=== PATIENT | male | born 1990 | race Caucasian/White ===

== ENCOUNTER 2019-12-04 19:42 | Emergency (ER) | payer OTHER ==
[~2019-12-04] VITALS: Ht 180.3 cm; Wt 89.2 kg
--- NOTE | 2019-12-04 20:03 | ED General ---
General Chief Complaint: Cough/Cold/Flu Symptoms Stated Complaint: FEVER,HEADACHE Nursing Triage Note: Patient states that he began having a headache today and noticed a fever. 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 Nursing Sepsis Screen: No Definite Risk Source of Information: Patient History of Present Illness Date Seen by Provider: Dec 04, 2019 Time Seen by Provider: 20:03 Initial Comments 29 yo M presenting with sinus headache and fever that started today. He has a history of having some sinus problems. He states that he was pulling out green drainage from his sinuses today. He had a temperature of that continuing to climb for him this afternoon and evening. He took a gram of Tylenol around 5:30- 6 pm but he still has a fever. He does have some sore throat from drainage. He denies any significant cough or shortness of breath. He has had ill contacts with some children that have been sick recently. He denies any tobacco use. Allergies and Home Medications Allergies Coded Allergies: No Known Drug Allergies (Unverified , 12/04/19) Patient Home Medication List Home Medication List Reviewed: Yes Review of Systems Review of Systems Constitutional: chills, fever EENTM: nose congestion, other (sinus pressure); No ear discharge, No ear pain, No vision loss, No mouth pain Respiratory: cough (mild) Cardiovascular: no symptoms reported Gastrointestinal: no symptoms reported Genitourinary: no symptoms reported Musculoskeletal: other (generalized body aches) Skin: no symptoms reported; No rash Psychiatric/Neurological: No Symptoms Reported Past Junkzsr-Umqrdy-Evdewc Hx Past Med/Social Hx: Reviewed Nursing Past Med/Soc Hx Patient Social History Recent Foreign Travel: No Contact w/Someone Who Travel: No Recent Infectious Disease Expo: No Physical Abuse: No Sexual Abuse: No Mistreated: No Fear: No Past Medical History Surgeries: No Respiratory: No Cardiac: No Neurological: No Genitourinary: No Gastrointestinal: No Musculoskeletal: No Endocrine: No HEENT: No Cancer: No Psychosocial: No Integumentary: No Physical Exam Vital Signs Vital Signs - First Documented 12/04/19 19:45 Temp 38.5 Pulse 72 Resp 14 B/P (MAP) 142/104 (117) Pulse Ox 100 O2 Delivery Room Air Capillary Refill : Less Than 3 Seconds Height, Weight, BMI Height: '" Weight: lbs. oz. kg; 27.00 BMI Method: General Appearance: No Apparent Distress, WD/WN HEENT: PERRL/EOMI, TMs Normal, Pharynx Normal, Other (tender to palpation over the maxillary and frontal sinuses) Neck: Full Range of Motion, Normal Inspection, Non Tender, Supple Respiratory: Chest Non Tender, Lungs Clear, Normal Breath Sounds, No Accessory Muscle Use, No Respiratory Distress Cardiovascular: Regular Rate, Rhythm, Normal Peripheral Pulses Gastrointestinal: Normal Bowel Sounds, No Pulsatile Mass, Soft Back: Normal Inspection, No Vertebral Tenderness Extremity: Normal Capillary Refill, No Pedal Edema Neurologic/Psychiatric: Alert, Oriented x3, No Motor/Sensory Deficits Skin: Normal Color, Warm/Dry; No Rash Progress/Results/Core Measures Suspected Sepsis Recent Fever Within 48 Hours: Yes Infection Criteria Present: None New/Unexplained Altered Menta: No Sepsis Screen: No Definite Risk SIRS Temperature: Pulse: 72 Respiratory Rate: 14 Blood Pressure 142 /104 Mean: 117 Results/Orders Micro Results Microbiology 12/04/19 Influenza Types A,B Antigen ([place]) - Final, Complete My Orders Orders - DAYA MARLOW MD Influenza A And B Antigens (12/04/19 19:57) Ibuprofen Tablet (Motrin Tablet) (12/04/19 20:21) Dexamethasone Injection (Decadron Inject (12/04/19 21:30) Methylprednisolone Acetate Inj (Depo-Med (12/04/19 21:30) Vital Signs/I&O 12/04/19 12/04/19 19:45 21:41 Temp 38.5 38.5 Pulse 72 72 Resp 14 14 B/P (MAP) 142/104 (117) 134/92 (117) Pulse Ox 100 100 O2 Delivery Room Air Capillary Refill : Less Than 3 Seconds Blood Pressure Mean: 117 Progress Note #1: Progress Note check flu swab and give Ibuprofen for fever and body aches Progress Note #2: Progress Note Flu swab was negative. Will treat symptomatically. Encouraged to follow-up through the clinic for continued concerns. A steroid shot was given to try and help with inflammation and swelling. Counseled to continue to treat his fever and push fluids and rest Departure Impression Primary Impression: Maxillary sinusitis, acute Qualified Codes: J01.01 - Acute recurrent maxillary sinusitis Additional Impressions: Acute frontal sinusitis Qualified Codes: J01.11 - Acute recurrent frontal sinusitis Fever in adult Disposition: HOME, SELF-CARE Condition: Stable Departure-Patient Inst. Decision time for Depature: 21:31 Referrals: FRACISCO DENNIS MD (PCP/Family) Primary Care Physician Patient Instructions: Sinusitis, Adult (DC), Fever, Adult (DC) Add. Discharge Instructions: Stay well hydrated and get plenty of rest Follow up with clinic for continued problems/concerns Use Ibuprofen alternating with Acetaminophen as needed for fever All discharge instructions reviewed with patient and/or family. Voiced understanding. Work/School Note: Work Release Form Date Seen in the Emergency Department: Dec 04, 2019 Return to Work: Dec 06, 2019 Restrictions: Return-No Fever (24hrs) DAYA MARLOW MD Dec 04, 2019 20:03
[2019-12-04] MEDS ORDERED: IBUPROFEN 800 MG (MOTRIN) TAB PO STA (20:21)
[2019-12-04] MEDS ORDERED: DEXAMETHASONE 10 MG/ML (DECADRON) 1 ML VIAL IM STA (21:30)
[2019-12-04] MEDS ORDERED: methylPREDNISolone 80 MG/ML (DEPO MEDROL) VIAL IM STA (21:30)
[2019-12-04 21:41] VITALS: BP 134/92
== END 2019-12-04 21:41 | disposition home or self-care (01) ==
LOC: ER FS 19:44
DX: J01.00 Acute maxillary sinusitis, unspecified (principal); J01.10 Acute frontal sinusitis, unspecified
CPT/HCPCS: 87804

== ENCOUNTER 2021-01-16 22:50 | Emergency (ER) | payer OTHER ==
[~2021-01-16] VITALS: Ht 182.8 cm; Wt 95.4 kg
[2021-01-16 22:58] VITALS: BP 145/103
--- NOTE | 2021-01-16 23:09 | ED Cough/URI ---
General Chief Complaint: Nasal Problems Stated Complaint: HEADACHE,COUGH Source: patient Exam Limitations: no limitations History of Present Illness Date Seen by Provider: Jan 16, 2021 Time Seen by Provider: 23:04 Initial Comments Patient is a 30-year-old male who presents to the emergency department today with a chief complaint of sinus drainage, facial fullness, congestion cough. Patient has had symptoms ongoing for about 48 hours. He states he has green na teddy secretions and is coughing up green secretions as well. He denies fevers or chills. No earache no sore throat. Patient denies any sick contacts. He is not short of breath currently. He has not taken anything dcfa-mtj-dusrzzm to try and alleviate his symptoms other than his allergy pills. All other review of systems reviewed and negative except as stated above. Timing/Duration: other (48 hours) Severity/Quality: productive cough Associated Symptoms: facial pain, nasal congestion, nasal drainage Allergies and Home Medications Allergies Coded Allergies: No Known Drug Allergies (Unverified , 12/04/19) Patient Home Medication List Home Medication List Reviewed: Yes Review of Systems Review of Systems Constitutional: see HPI EENTM: nose congestion Respiratory: cough, phlegm Cardiovascular: no symptoms reported Gastrointestinal: no symptoms reported Genitourinary: no symptoms reported Musculoskeletal: no symptoms reported Skin: no symptoms reported All Other Systems Reviewed Negative Unless Noted: Yes Past Eiygrsa-Qqqnjd-Rciwsm Hx Past Medical History Surgeries: No Respiratory: No Cardiac: No Neurological: No Genitourinary: No Gastrointestinal: No Musculoskeletal: No Endocrine: No HEENT: No Cancer: No Psychosocial: No Integumentary: No Physical Exam Capillary Refill : Height: '" Weight: lbs. oz. kg; 27.00 BMI Method: General Appearance: WD/WN, no apparent distress Eyes: Bilateral Eye Normal Inspection, Bilateral Eye PERRL, Bilateral Eye EOMI HEENT: PERRL/EOMI, normal ENT inspection, TMs normal, pharynx normal Neck: full range of motion, supple, lymphadenopathy (R) Respiratory: lungs clear, normal breath sounds, no respiratory distress, no accessory muscle use Cardiovascular: regular rate, rhythm Gastrointestinal: non tender, soft Extremities: normal range of motion, normal inspection Neurologic/Psychiatric: alert, normal mood/affect, oriented x 3 Skin: normal color, warm/dry Progress/Results/Core Measures Suspected Sepsis SIRS Temperature: Pulse: Respiratory Rate: Blood Pressure / Mean: Results/Orders Vital Signs/I&O Capillary Refill : Departure Impression Primary Impression: Sinusitis Qualified Codes: J01.90 - Acute sinusitis, unspecified Disposition: 01 HOME, SELF-CARE Condition: Stable Departure-Patient Inst. Decision time for Depature: 23:12 Referrals: SELFFRACISCO MD (PCP/Family) Primary Care Physician Patient Instructions: Sinusitis, Adult ED, Sinusitis in Adults Add. Discharge Instructions: You should get some kpvm-efh-cobtvlq Robitussin decongestant this will help with your sinus fullness and cough . I have also written you a prescription for Sudafed which will dry out your sinuses and make you feel little bit better. You can use hphh-eaa-cjcqeyn saline nasal sprays to help keep your nose open. Try to avoid using medications like Afrin as this will over the long-term increase your congestion. Take the Tessalon Perles I have prescribed you as needed for cough. Your symptoms should start to clear up within the next 2 to 3 days. Scripts Phenylephrine HCl/Acetaminophn (Sudafed PE Sinus Pressure Tab) 1 Each Tablet 1 EACH PO BID PRN for CONGESTION, #30 TAB Prov: MALCOLM MOJICA MD 01/16/21 Benzonatate (TESSALON PERLES) 100 Mg Capsule 200 MG PO TID PRN for cough, #20 CAP Prov: MALCOLM MOJICA MD 01/16/21 MALCOLM MOJICA MD Jan 16, 2021 23:09
[2021-01-16] MEDS ORDERED: BENZ100C18 PO (23:15)
[2021-01-16] MEDS ORDERED: [UNRECOGNIZED DRUG - CODE] PO (23:15)
[2021-01-16] MEDS ORDERED: BENZONATATE 100 MG (TESSALON) CAPSULE PO SCH (23:15)
== END 2021-01-16 23:28 | disposition home or self-care (01) ==
LOC: EDUNIT# 22:50 → ER FS 22:51
DX: J01.90 Acute sinusitis, unspecified (principal)
CPT/HCPCS: 99284

== ENCOUNTER 2021-09-29 00:51 | Emergency (ER) | payer OTHER ==
[~2021-09-29] VITALS: Ht 180 cm; Wt 94.0 kg
[~2021-09-29 00:51] MED LIST: BENZ100C18 PO; [UNRECOGNIZED DRUG - CODE] PO
[2021-09-29] MEDS ORDERED: NS IV 1000 ML 1,000 ML IV STA (01:22)
[2021-09-29] MEDS ORDERED: meTOprolol 5 MG/5 ML (LOPRESSOR) VIAL IV STA (01:22)
--- NOTE | 2021-09-29 01:22 | ED General ---
General Chief Complaint: Cardiac/General Problems Stated Complaint: CHILLS/HYPERTION Source of Information: Patient History of Present Illness Date Seen by Provider: Sep 29, 2021 Time Seen by Provider: 00:57 Initial Comments 30-year-old male presenting with complaints of sinus drainage with cough and congestion. He felt "weird" and took his blood pressure earlier. His pressure was elevated and he felt like his heart was beating irregular and fast. He did have some vomiting with choking on thick sinus drainage. He denies having any fever or chills. He did not have any pain in his chest. He denies any a bdominal pain, pain with urination, change in his bowels, diarrhea, sore throat. He has had coworkers that have been sick with the flu and Covid. He used to be on high blood pressure medication but has not taken any recently Timing/Duration: 12-24 Hours Severity: Moderate Associated Systoms: Cough; No Diaphoresis, No Fever/Chills, No Headaches, No Loss of Appetite, No Malaise; Nausea/Vomiting (Due to choking on thick sinus drainage); No Seizure, No Shortness of Air, No Syncope, No Weakness Allergies and Home Medications Allergies Coded Allergies: No Known Drug Allergies (Unverified , 12/04/19) Patient Home Medication List Home Medication List Reviewed: Yes Benzonatate (Tessalon Perles) 100 Mg Capsule, 200 MG PO TID PRN for cough Prescribed by: MALCOLM MOJICA on 01/16/212314 Phenylephrine HCl/Acetaminophn (Sudafed PE Sinus Pressure Tab) 1 Each Tablet, 1 EACH PO BID PRN for CONGESTION Prescribed by: MALCOLM MOJICA on 01/16/212314 Review of Systems Review of Systems Constitutional: see HPI EENTM: see HPI, nose congestion Respiratory: see HPI Cardiovascular: see HPI, palpitations Gastrointestinal: see HPI; No abdominal pain Genitourinary: no symptoms reported Musculoskeletal: no symptoms reported Skin: No rash Psychiatric/Neurological: Anxiety; Denies Headache Past Sdzeroj-Cvohdq-Zlcrej Hx Seasonal Allergies Seasonal Allergies: Yes Past Medical History Surgeries: Yes Appendectomy Respiratory: No Cardiac: No Neurological: No Genitourinary: No Gastrointestinal: No Musculoskeletal: No Endocrine: No HEENT: No Cancer: No Psychosocial: No Integumentary: No Blood Disorders: No Physical Exam Vital Signs Vital Signs - First Documented 09/29/21 01:00 Temp 37.4 Pulse 93 Resp 12 B/P (MAP) 163/100 (121) Pulse Ox 99 O2 Delivery Room Air Capillary Refill : Height, Weight, BMI Height: '" Weight: lbs. oz. kg; 28.00 BMI Method: General Appearance: No Apparent Distress, Anxious HEENT: PERRL/EOMI, Normal ENT Inspection, Pharynx Normal Neck: Full Range of Motion, Normal Inspection, Non Tender, Supple Respiratory: Chest Non Tender, Lungs Clear, Normal Breath Sounds, No Accessory Muscle Use, No Respiratory Distress Cardiovascular: Regular Rate, Rhythm, Normal Peripheral Pulses Gastrointestinal: Normal Bowel Sounds, No Pulsatile Mass, Non Tender, Soft Rectal: Deferred Extremity: Normal Capillary Refill, Normal Inspection, No Calf Tenderness, No Pedal Edema Neurologic/Psychiatric: Alert, Oriented x3, clinical engineering director II-XII Norm as Tested Skin: Normal Color, Warm/Dry Progress/Results/Core Measures Suspected Sepsis SIRS Temperature: Pulse: Respiratory Rate: Laboratory Tests 09/29/21 02:00: White Blood Count 8.1 Blood Pressure / Mean: Laboratory Tests 09/29/21 02:00: Creatinine 0.83, INR Comment 0.9, Platelet Count 235, Total Bilirubin 0.5 Results/Orders Lab Results Laboratory Tests Test 09/29/21 01:55 09/29/21 02:00 Range/Units Influenza Type A Antigen NEGATIVE NEGATIVE Influenza Type B Antigen NEGATIVE NEGATIVE White Blood Count 8.1 4.3-11.0 10^3/uL Red Blood Count 4.97 4.30-5.52 10^6/uL Hemoglobin 15.0 13.3-17.7 g/dL Hematocrit 43 40-54 % Mean Corpuscular Volume 87 80-99 fL Mean Corpuscular Hemoglobin 30 25-34 pg Mean Corpuscular Hemoglobin Concent 35 32-36 g/dL Red Cell Distribution Width 12.7 10.0-14.5 % Platelet Count 235 130-400 10^3/uL Mean Platelet Volume 10.0 9.0-12.2 fL Immature Granulocyte % (Auto) 0 % Neutrophils (%) (Auto) 58 42-75 % Lymphocytes (%) (Auto) 30 12-44 % Monocytes (%) (Auto) 8 0-12 % Eosinophils (%) (Auto) 4 0-10 % Basophils (%) (Auto) 0 0-10 % Neutrophils # (Auto) 4.7 1.8-7.8 X 10^3 Lymphocytes # (Auto) 2.4 1.0-4.0 X 10^3 Monocytes # (Auto) 0.6 0.0-1.0 X 10^3 Eosinophils # (Auto) 0.3 0.0-0.3 10^3/uL Basophils # (Auto) 0.0 0.0-0.1 10^3/uL Immature Granulocyte # (Auto) 0.0 0.0-0.1 10^3/uL Prothrombin Time 12.3 12.2-14.7 SEC INR Comment 0.9 0.8-1.4 Activated Partial Thromboplast Time 25 24-35 SEC D-Dimer 0.57 H 0.00-0.49 UG/ML Sodium Level 139 135-145 MMOL/L Potassium Level 4.2 3.6-5.0 MMOL/L Chloride Level 101 98-107 MMOL/L Carbon Dioxide Level 24 21-32 MMOL/L Anion Gap 14 5-14 MMOL/L Blood Urea Nitrogen 17 7-18 MG/DL Creatinine 0.83 0.60-1.30 MG/DL Estimat Glomerular Filtration Rate 107 BUN/Creatinine Ratio 20 Glucose Level 127 H 70-105 MG/DL Calcium Level 9.8 8.5-10.1 MG/DL Corrected Calcium 8.5-10.1 MG/DL Magnesium Level 2.0 1.6-2.4 MG/DL Total Bilirubin 0.5 0.1-1.0 MG/DL Aspartate Amino Transf (AST/SGOT) 28 5-34 U/L Alanine Aminotransferase (ALT/SGPT) 43 0-55 U/L Alkaline Phosphatase 85 40-136 U/L Troponin I < 0.30 <0.30 NG/ML Pro-B-Type Natriuretic Peptide < 5.0 <75.0 PG/ML Total Protein 7.7 6.4-8.2 GM/DL Albumin 4.6 H 3.2-4.5 GM/DL Lipase 20 8-78 U/L My Orders Orders - DAYA MARLOW MD Cbc With Automated Diff (09/29/21 01:22) Magnesium (09/29/21 01:22) Chest 1 View Ap/Pa Only (09/29/21 01:22) Ekg Tracing (09/29/21:22) Comprehensive Metabolic Panel (09/29/21:) Protime With Inr (09/29/21:) Partial Thromboplastin Time (09/29/21:) O2 (09/29/21:) Monitor-Rhythm Ecg Trace Only (09/29/21:22) Ed Iv/Invasive Line Start (09/29/21:) Lipase (09/29/21:) Troponin I Fs (09/29/21:22) Probnp Fs (09/29/21:) Fibrin Degradation Products (09/29/21:) Influenza A & B Antigens (09/29/21:) Covid 19 Inhouse Test (09/29/21:) Ns Iv 1000 Ml (Sodium Chloride 0.9%) (09/29/21:) Metoprolol Tartrate Injection (Lopressor (09/29/21:) Vital Signs/I&O 09/29/21 09/29/21 09/29/21 09/29/21 01:00 01:33 02:09 02:15 Temp 37.4 Pulse 93 94 85 80 Resp 12 12 12 14 B/P (MAP) 163/100 (121) 161/106 150/94 142/90 Pulse Ox 99 99 98 99 O2 Delivery Room Air 09/29/21 02:45 Pulse 80 Resp 14 B/P (MAP) 143/93 Pulse Ox 98 O2 Delivery Room Air Capillary Refill : Progress Note #1: Progress Note Obtain electrocardiogram to evaluate his concern for irregular heartbeat and palpitations. Chest x-ray to check for signs of infiltrate or or effusion. Check basic labs to evaluate his blood count as well as electrolytes and heart enzymes. Give IV fluids for hydration, metoprolol 5 mg IV for high blood pressure and fast heart rate. Progress Note #2: Progress Note Labs are all stable without acute significant abnormality. He has negative for influenza. His chest x-ray does not show any acute infiltrate. His heart rate and blood pressure improved with fluids and a single dose of metoprolol. He is reporting that he is feeling hungry. With his testing not showing any acute findings for heart disease or electrolyte abnormalities or infection well discharged home. Since the Covid swab is not back will encourage him to self isolate and quarantine until he can have a negative Covid result. ECG Initial ECG Impression Date: Sep 29, 2021 Initial ECG Impression Time: 01:37 Initial ECG Rate: 90 Initial ECG Rhythm: Normal Sinus Initial ECG Comparisson: No Previous ECG Available Comment Normal sinus rhythm with a heart rate of 90 bpm. [place] interval [address] elevation. QT interval 339 ms with a QTc interval 415 ms. There is no prior tracing available for comparison. Diagnostic Imaging Diagonstic Imaging: Xray Plain Films/CT/US/NM/MRI: chest Comments On my review of the 1 view chest x-ray there is no acute infiltrate or effusion. He has no pneumothorax. There is no acute abnormality Reviewed: Reviewed by Me Departure Impression Primary Impression: Essential hypertension Additional Impressions: Heart palpitations Sinus drainage Disposition: HOME, SELF-CARE Condition: Stable Departure-Patient Inst. Decision time for Depature: 03:02 Referrals: FRACISCO DENNIS MD (PCP/Family) Primary Care Physician Patient Instructions: Palpitations ED, High Blood Pressure ED, DASH Diet Add. Discharge Instructions: Stay well hydrated and get plenty of rest. Quarantine until you have results of Covid test from this morning. If your test is negative you could return to work on Tuesday. If it is positive you would need to quarantine for 10 days. Follow up with clinic as you may need to be placed back on blood pressure medicine. If your heart palpitations are not improving the clinic may also have you do a holter monitor to check for irregular heart beats or arrhythmias. All discharge instructions reviewed with patient and/or family. Voiced understanding. Work/School Note: Work Release Form Date Seen in the Emergency Department: Sep 29, 2021 Return to Work: Sep 30, 2021 Restrictions: No Restrictions Other Restrictions Listed Below: Return to work Sep 30 unless COVID test is positive. DAYA MARLOW MD Sep 29, 2021 01:22
[2021-09-29 02:22] LABS: HEMATOCRIT 43 % (40-54); MEAN CORPUSCULAR HEMOGLOBIN 30 pg (25-34); WHITE BLOOD COUNT 8.1 10^3/uL (4.3-11.0)
[2021-09-29 02:23] LABS: BASOPHILS % (AUTO) 0 % (0-10); EOSINOPHILS % (AUTO) 4 % (0-10); LYMPHOCYTES % (AUTO) 30 % (12-44); MEAN CORPUSCULAR HGB CONC 35 g/dL (32-36); MEAN CORPUSCULAR VOLUME 87 fL (80-99); MONOCYTES % (AUTO) 8 % (0-12); NEUTROPHILS # (AUTO) 4.7 X 10^3 (1.8-7.8); NEUTROPHILS % (AUTO) 58 % (42-75); PLATELET COUNT 235 10^3/uL (130-400)
[2021-09-29 02:24] LABS: EOSINOPHILS # (AUTO) 0.3 10^3/uL (0.0-0.3); LYMPHOCYTES # (AUTO) 2.4 X 10^3 (1.0-4.0); MONOCYTES # (AUTO) 0.6 X 10^3 (0.0-1.0)
[2021-09-29 02:26] LABS: FIBRIN DEGRADATION PRODUCTS 0.57 UG/ML (0.00-0.49)
[2021-09-29 02:27] LABS: INR 0.9 (0.8-1.4); PROTHROMBIN TIME PATIENT 12.3 SEC (12.2-14.7)
[2021-09-29 02:50] LABS: ALANINE AMINOTRANSFERASE 43 U/L (0-55); ALBUMIN 4.6 GM/DL (3.2-4.5); ALKALINE PHOSPHATASE 85 U/L (40-136); BILIRUBIN,TOTAL 0.5 MG/DL (0.1-1.0); BUN/CREATININE RATIO 20; CALCIUM 9.8 MG/DL (8.5-10.1); CARBON DIOXIDE 24 MMOL/L (21-32); CHLORIDE 101 MMOL/L (98-107); CREATININE SERUM 0.83 MG/DL (0.60-1.30); GFR ESTIMATED 107; GLUCOSE 127 MG/DL (70-105); POTASSIUM 4.2 MMOL/L (3.6-5.0); SODIUM 139 MMOL/L (135-145); TOTAL PROTEIN 7.7 GM/DL (6.4-8.2)
[2021-09-29 02:51] LABS: LIPASE 20 U/L (8-78)
[2021-09-29 03:24] VITALS: BP 138/90
--- NOTE | 2021-09-29 05:33 | Diagnostic Imaging Report ---
PATIENT HISTORY: heart palpitations, high blood pressure, short of breath. TECHNIQUE: Single frontal view of the chest. COMPARISON: None FINDINGS: The lung volumes are normal. No focal consolidation is seen. No large pleural effusion or pneumothorax is seen. The cardiomediastinal silhouette is normal in size and contour. No acute osseous abnormality is seen. IMPRESSION: No acute pulmonary abnormality seen. Dictated by: Dictated on workstation # [id number]
== END 2021-09-29 03:24 | disposition home or self-care (01) ==
LOC: EDUNIT# 00:51 → ER FS 00:53
DX: I10 Essential (primary) hypertension (principal); R00.2 Palpitations; R09.82 Postnasal drip; Z20.822 Contact with and (suspected) exposure to COVID-19
CPT/HCPCS: 36415; 71045; 80053; 83690; 83735; 83880; 84484; 85025; 85379; 85610; 85730; 87636; 87804; 93005; 93041

== ENCOUNTER 2021-10-11 23:42 | Emergency (ER) | payer OTHER ==
[~2021-10-11] VITALS: Ht 180.3 cm; Wt 90.5 kg
[2021-10-11 23:58] VITALS: BP 160/103
--- NOTE | 2021-10-12 00:04 | ED General ---
General Chief Complaint: General Problems/Pain Stated Complaint: HIGH PULSE Nursing Triage Note: PT ARRIVED BY PRIVATE VEHICLE WITH CHIEF COMPLAINT OF ELEVATED PULSE. PT WAS ALERT, ORIENTED X 4 AND AMBULATORY. PT APPEARED TO BE ANXIOUS. PT'S VITALS WERE DONE. PT STATED HE ISN'T SURE IF IT IS DUE TO THE CAFFIENE INTAKE HE HAS HAD TODAY. HE STATED HE HAS HAD AN ENERGY DRINK AND 2 COKE ZEROS. PT STATED HIS PULSE WAS BETWEEN 100-129. PT WAS AT THE [facility] EARLIER. PT DENIES ALLERGIES, SMOKING, ALCOHOL USE OR DRUG USE. PT RECIEVED THE TED AND TED VACCINE. REPORT WAS GIVEN TO PROVIDER. Source of Information: Patient Exam Limitations: No Limitations History of Present Illness Date Seen by Provider: Oct 11, 2021 Time Seen by Provider: 23:45 Initial Comments Patient is a 30-year-old male who presents with palpitations in the shower after drinking 1 energy drink and to caffeinated sodas. He states his pulse was between 100-130 approximately 45 minutes prior to arrival. He then decided to go for a brisk walk to see if it would slow down which did not. He denies drug or alcohol use. He denies chest pain shortness of breath or symptoms at this time. He does report feeling anxious. Timing/Duration: 1 Hour Severity: Mild Modifying Factors: improves with Other Associated Systoms: Other Allergies and Home Medications Allergies Coded Allergies: No Known Drug Allergies (Unverified , 12/04/19) Patient Home Medication List Home Medication List Reviewed: Yes Benzonatate (Tessalon Perles) 100 Mg Capsule, 200 MG PO TID PRN for cough Prescribed by: MALCOLM MOJICA on 01/16/218 Phenylephrine HCl/Acetaminophn (Sudafed PE Sinus Pressure Tab) 1 Each Tablet, 1 EACH PO BID PRN for CONGESTION Prescribed by: MALCOLM MOJICA on 01/16/212 Review of Systems Review of Systems Constitutional: see HPI EENTM: see HPI Respiratory: see HPI Cardiovascular: see HPI Gastrointestinal: see HPI Musculoskeletal: see HPI Skin: see HPI Psychiatric/Neurological: See HPI Hematologic/Lymphatic: See HPI Immunological/Allergic: see HPI Past Uujjthm-Hjynvb-Eatbta Hx Patient Social History Tobacco Use?: Yes Use of E-Cig and/or Vaping dev: No Substance use?: No Alcohol Use?: No Pt feels they are or have been: No Immunizations Up To Date First/Initial COVID19 Vaccinat: DECEMBER 2020 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 oz. kg; 27.00 BMI Method: General Appearance: No Apparent Distress, Anxious Eyes: Bilateral Eye Normal Inspection, Bilateral Eye PERRL, Bilateral Eye EOMI HEENT: PERRL/EOMI Neck: Full Range of Motion, Non Tender, Supple Respiratory: Lungs Clear, Normal Breath Sounds Cardiovascular: Regular Rate, Rhythm Neurologic/Psychiatric: Alert, Oriented x3, No Motor/Sensory Deficits, shaft repairer II- XII Norm as Tested Focused Exam Sepsis Stage: Ruled Out Progress/Results/Core Measures Suspected Sepsis SIRS Temperature: Pulse: 105 Respiratory Rate: 18 Blood Pressure 160 /103 Mean: 122 Results/Orders Vital Signs/I&O 10/11/21 23:47 Temp 36.8 Pulse 105 Resp 18 B/P (MAP) 160/103 (122) Pulse Ox 97 O2 Delivery Room Air Capillary Refill : Less Than 3 Seconds Blood Pressure Mean: 122 Departure Communication (Admissions) Palpitations resolved prior to ED arrival and were after drinking 3 highly caffeinated beverages.normal pulse rate in the ER. Patient is clinically anxious. Physical exam is otherwise unremarkable. He is instructed to avoid caffeine use at bedtime and wrist limit caffeine to 1 beverage daily. He is instructed to follow-up with his PCP if further concerns. Return precautions reviewed. Impression Primary Impression: Heart palpitations Additional Impression: Caffeine intoxication, episodic Disposition: 01 HOME, SELF-CARE Condition: Stable Departure-Patient Inst. Decision time for Depature: 00:03 Referrals: EPHRAIM PIERRE MD (PCP) Primary Care Physician SELF,FRACISCO YIN (Family) Primary Care Physician Patient Instructions: Palpitations ED Add. Discharge Instructions: Limit caffeinated beverages to 1 drink daily and avoid before bedtime. Follow- up with your PCP for reevaluation as needed for further symptoms. Return to the ED if new or concerning symptoms. All discharge instructions reviewed with patient and/or family. Voiced understanding. SAAD LAIRD DO Oct 12, 2021 00:03
== END 2021-10-12 00:05 | disposition home or self-care (01) ==
LOC: EDUNIT# 23:42 → ER FS 23:44
DX: R00.2 Palpitations (principal); F15.129 Other stimulant abuse with intoxication, unspecified
CPT/HCPCS: 99281

== ENCOUNTER → 2022-04-14 | Outpatient (CLI) | payer OTHER | LOC: CARD 14:20 | PROVIDERS: ATTEND Internal Medicine Cardiovascular Disease | DX: I10 Essential (primary) hypertension (principal); I25.10 Atherosclerotic heart disease of native coronary artery without angina pectoris | CPT/HCPCS: 93306 ==

== ENCOUNTER → 2023-01-03 | Outpatient (CLI) | payer OTHER | LOC: CARD 08:17 | PROVIDERS: ATTEND Internal Medicine Cardiovascular Disease | DX: I10 Essential (primary) hypertension (principal); I25.10 Atherosclerotic heart disease of native coronary artery without angina pectoris | CPT/HCPCS: 93306 ==

== ENCOUNTER 2023-01-18 21:19 | Emergency (ER) | payer OTHER ==
[~2023-01-18] VITALS: Ht 180.3 cm; Wt 94.9 kg
[2023-01-18] MEDS ORDERED: DICYCLOMINE 10 MG/ML (BENTYL) 2 ML AMP IM STA (21:33)
[2023-01-18] MEDS ORDERED: ONDANSETRON 4 MG/2 ML (SDV) Z0FRAN IVP STA (21:33)
[2023-01-18] MEDS ORDERED: NS IV 1000 ML 1,000 ML IV STA (21:33)
--- NOTE | 2023-01-18 21:37 | ED Abdominal Pain ---
General Chief Complaint: Abdominal/GI Problems Stated Complaint: ABD PAIN Source of Information: Patient History of Present Illness Date Seen by Provider: Jan 18, 2023 Time Seen by Provider: 21:23 Initial Comments 32-year-old male presenting with complaints of lower abdominal pain and cramping. A started having symptoms last night after he had eaten a chicken sandwich from [employer] down by [place]. He felt okay during the day but his symptoms started up again this evening. He tried Maalox and Mylanta without any improvement. He denies any diarrhea or change in his bowels but has had nausea and abdominal cramping. The pain is primarily on the lower part of his abdomen. He denies any surgeries on his abdomen in the past. No blood in his stools, pain with urination, blood in his urine. No actual vomiting but having nausea. Timing/Duration: 24 Hours Severity/Quality: Moderate, Aching, Cramping Location: RLQ, LLQ Radiation: No Radiation Activities at Onset: None Modifying Factors: Worsens With Eating Associated Symptoms: No Back Pain, No Chest Pain, No Diaphoresis, No Fever/ Chills, No Fatigue, No Headache, No Heartburn; Nausea/Vomiting (No vomiting but having nausea); No Rash, No Shortness of Air, No Swelling/Mass in Abdomen, No Syncope, No Weakness Allergies and Home Medications Allergies Coded Allergies: No Known Drug Allergies (Unverified , 12/04/19) Patient Home Medication List Home Medication List Reviewed: Yes Benzonatate (Tessalon Perles) 100 Mg Capsule, 200 MG PO TID PRN for cough Prescribed by: MALCOLM MOJICA on 01/16/212314 Dicyclomine HCl (Dicyclomine HCl) 10 Mg Capsule, 10 MG PO Q6H PRN for abdominal pain/nausea Prescribed by: DAYA MARLOW on 01/18/232222 Phenylephrine HCl/Acetaminophn (Sudafed PE Sinus Pressure Tab) 1 Each Tablet, 1 EACH PO BID PRN for CONGESTION Prescribed by: MALCOLM MOJICA on 01/16/212314 Review of Systems Review of Systems Constitutional: No chills, No fever EENTM: No Symptoms Reported Respiratory: No Symptoms Reported Cardiovascular: No Symptoms Reported Gastrointestinal: See HPI Genitourinary: See HPI Musculoskeletal: no symptoms reported Skin: no symptoms reported Psychiatric/Neurological: No Symptoms Reported Past Vlskuky-Uiicnb-Vzihks Hx Immunizations Up To Date First/Initial COVID19 Vaccinat: DECEMBER 2020 Seasonal Allergies Seasonal Allergies: Yes Past Medical History Surgeries: Yes Appendectomy Respiratory: No Cardiac: No Neurological: No Genitourinary: No Gastrointestinal: No Musculoskeletal: No Endocrine: No HEENT: No Cancer: No Psychosocial: No Integumentary: No Blood Disorders: No Physical Exam Vital Signs Vital Signs - First Documented 01/18/23 21:22 Temp 37.0 Pulse 101 Resp 16 B/P (MAP) 181/93 (122) Pulse Ox 99 O2 Delivery Room Air Capillary Refill : Height/Weight/BMI Height: '" Weight: lbs. oz. kg; 27.00 BMI Method: General Appearance: WD/WN, no apparent distress HEENT: PERRL/EOMI, pharynx normal Respiratory: chest non-tender, lungs clear, normal breath sounds, no respiratory distress, no accessory muscle use Cardiovascular: normal peripheral pulses, regular rate, rhythm Gastrointestinal: normal bowel sounds, soft, no pulsatile mass; No distended, No guarding, No rebound; tenderness (Tender to palpation on the lower abdomen without rebound or guarding.) Rectal: deferred Extremities: normal range of motion, non-tender, normal capillary refill Neurologic/Psychiatric: alert, oriented x 3 Skin: normal color, warm/dry Progress/Results/Core Measures Results/Orders Lab Results Laboratory Tests Test 01/18/23 21:35 01/18/23 22:30 Range/Units White Blood Count 12.1 H 4.3-11.0 10^3/uL Red Blood Count 4.99 4.30-5.52 10^6/uL Hemoglobin 14.7 13.3-17.7 g/dL Hematocrit 43 40-54 % Mean Corpuscular Volume 86 80-99 fL Mean Corpuscular Hemoglobin 30 25-34 pg Mean Corpuscular Hemoglobin Concent 34 32-36 g/dL Red Cell Distribution Width 13.2 10.0-14.5 % Platelet Count 214 130-400 10^3/uL Mean Platelet Volume 9.9 9.0-12.2 fL Immature Granulocyte % (Auto) 0 % Neutrophils (%) (Auto) 84 H 42-75 % Lymphocytes (%) (Auto) 8 L 12-44 % Monocytes (%) (Auto) 6 0-12 % Eosinophils (%) (Auto) 2 0-10 % Basophils (%) (Auto) 0 0-10 % Neutrophils # (Auto) 10.2 H 1.8-7.8 10^3/uL Lymphocytes # (Auto) 0.9 L 1.0-4.0 10^3/uL Monocytes # (Auto) 0.7 0.0-1.0 10^3/uL Eosinophils # (Auto) 0.2 0.0-0.3 10^3/uL Basophils # (Auto) 0.0 0.0-0.1 10^3/uL Immature Granulocyte # (Auto) 0.0 0.0-0.1 10^3/uL Neutrophils % (Manual) 81 % Lymphocytes % (Manual) 9 % Monocytes % (Manual) 5 % Eosinophils % (Manual) 1 % Band Neutrophils 4 % Platelet Estimate NORMAL Blood Morphology Comment NORMAL Sodium Level 136 135-145 MMOL/L Potassium Level 4.1 3.6-5.0 MMOL/L Chloride Level 101 98-107 MMOL/L Carbon Dioxide Level 27 21-32 MMOL/L Anion Gap 8 5-14 MMOL/L Blood Urea Nitrogen 18 7-18 MG/DL Creatinine 0.89 0.60-1.30 MG/DL Estimat Glomerular Filtration Rate 115 BUN/Creatinine Ratio 20 Glucose Level 99 70-105 MG/DL Calcium Level 9.9 8.5-10.1 MG/DL Corrected Calcium 8.5-10.1 MG/DL Total Bilirubin 0.7 0.1-1.0 MG/DL Aspartate Amino Transf (AST/SGOT) 30 5-34 U/L Alanine Aminotransferase (ALT/SGPT) 49 0-55 U/L Alkaline Phosphatase 90 40-136 U/L Total Protein 7.7 6.4-8.2 GM/DL Albumin 4.6 H 3.2-4.5 GM/DL Lipase 20 8-78 U/L Urine Color YELLOW Urine Clarity CLOUDY H Urine pH 8.5 5-9 Urine Specific [place] 1.020 1.016-1.022 Urine Protein NEGATIVE NEGATIVE Urine Glucose (UA) NEGATIVE NEGATIVE Urine Ketones NEGATIVE NEGATIVE Urine Nitrite NEGATIVE NEGATIVE Urine Bilirubin NEGATIVE NEGATIVE Urine Urobilinogen 0.2 < = 1.0 MG/DL Urine Leukocyte Esterase NEGATIVE NEGATIVE Urine RBC (Auto) NEGATIVE NEGATIVE Urine RBC RARE /HPF Urine WBC NONE /HPF Urine Squamous Epithelial Cells NONE /HPF Urine Crystals PRESENT H /LPF Urine Amorphous Sediment LARGE RONI PHOSPHATE H /LPF Urine Bacteria NEGATIVE /HPF Urine Casts NONE /LPF Urine Mucus NEGATIVE /LPF Urine Culture Indicated NO My Orders Orders - DAYA MARLOW MD Comprehensive Metabolic Panel (01/18/23 21:33) Lipase (01/18/23 21:33) Ua Culture If Indicated (01/18/23 21:33) Ed Iv/Invasive Line Start (01/18/23 21:33) Cbc With Automated Diff (01/18/23 21:33) Ns Iv 1000 Ml (Sodium Chloride 0.9%) (01/18/23 21:33) Dicyclomine Injection (Bentyl Injection) (01/18/23 21:33) Ondansetron Injection (Zofran Injectio (01/18/23 21:33) Ns Iv 1000 Ml (Sodium Chloride 0.9%) (01/18/23 21:43) Manual Differential (01/18/23 21:35) Vital Signs/I&O 01/18/23 01/18/23 21:22 22:40 Temp 37.0 36.8 Pulse 101 92 Resp 16 16 B/P (MAP) 181/93 (122) 179/91 Pulse Ox 99 99 O2 Delivery Room Air Room Air Progress Progress Note #1: Progress Note Potential diagnosis of gastroenteritis, food poisoning, viral enteritis, gastritis, colitis, diverticulitis, constipation, UTI. As he was not having focal abdominal pain but rather diffuse lower abdominal pain will defer CT scan or imaging of his abdomen for now. Obtain peripheral IV access and check complete blood count and comprehensive metabolic profile and lipase. Ordered normal saline 1 L IV fluid bolus for hydration, Zofran 4 mg IV for nausea, Bentyl 20 mg IM x 1 for abdominal pain/nausea. Urinalysis to check hydration level and look for infection. Progress Note #2: Time: 22:08 Progress Note Complete blood count has mild elevation of the white blood cells to upper limit of normal at 12.1. Hemoglobin is normal at 14.7 so it is not showing anemia. His comprehensive metabolic profile did not show acute significant abnormality with his electrolytes. His lipase was normal at 20. He reports some improvement in his symptoms with treatment here in the ED. We will try and obtain a urine specimen as he has had IV fluids infused. Progress Note #3: Progress Note Urinalysis was cloudy with some crystals but no nitrites, leukocyte esterase, bacteria for UTI. Sent prescription for Bentyl or dicyclomine 10 mg p.o. every 6 hours for Nausea, abdominal pain to the pharmacy. Encouraged to follow a liquid diet for at least 24 to 48 hours and then advance to bland and regular food as tolerated. Reassured patient that we are not seeing any acute surgical findings on his testing and there is electrolytes and blood count seem stable without acute significant changes. Departure Impression Primary Impression: Gastroenteritis Additional Impressions: Bilateral lower abdominal cramping Dehydration Disposition: HOME, SELF-CARE Condition: Improved Departure-Patient Inst. Decision time for Depature: 22:37 Referrals: EPHRAIM PIERRE MD (PCP/Family) Primary Care Physician Patient Instructions: Nausea and Vomiting, Adult ED, Dehydration, Adult ED Add. Discharge Instructions: Continue to try and stay well hydrated. Take Bentyl (Dicyclomine) 10 mg by mouth up to every 6 hours as needed for pain and nausea. Try following a liquid diet for 24 hours and advance to bland foods if you are t olerating the liquids. Check with clinic if having worsening problems or not improving All discharge instructions reviewed with patient and/or family. Voiced understanding. Scripts Dicyclomine HCl (Dicyclomine HCl) 10 Mg Capsule 10 MG PO Q6H PRN for abdominal pain/nausea for 5 Days, #20 CAP 0 Refills Prov: DAYA MARLOW MD 01/18/23 Work/School Note: Work Release Form Date Seen in the Emergency Department: Jan 18, 2023 Return to Work: Jan 20, 2023 Restrictions: Return-No Vomiting(24hrs) DAYA MARLOW MD Jan 18, 2023 21:37
[2023-01-18] MEDS ORDERED: NS IV 1000 ML 1,000 ML ONE (21:43)
[2023-01-18 21:49] LABS: BASOPHILS % (AUTO) 0 % (0-10); EOSINOPHILS # (AUTO) 0.2 10^3/uL (0.0-0.3); EOSINOPHILS % (AUTO) 2 % (0-10); HEMATOCRIT 43 % (40-54); HEMOGLOBIN 14.7 g/dL (13.3-17.7); LYMPHOCYTES # (AUTO) 0.9 10^3/uL (1.0-4.0); LYMPHOCYTES % (AUTO) 8 % (12-44); MEAN CORPUSCULAR HEMOGLOBIN 30 pg (25-34); MEAN CORPUSCULAR HGB CONC 34 g/dL (32-36); MEAN CORPUSCULAR VOLUME 86 fL (80-99); MEAN PLATELET VOLUME 9.9 fL (9.0-12.2); MONOCYTES # (AUTO) 0.7 10^3/uL (0.0-1.0); MONOCYTES % (AUTO) 6 % (0-12); NEUTROPHILS # (AUTO) 10.2 10^3/uL (1.8-7.8); NEUTROPHILS % (AUTO) 84 % (42-75); PLATELET COUNT 214 10^3/uL (130-400); WHITE BLOOD COUNT 12.1 10^3/uL (4.3-11.0)
[2023-01-18 22:06] LABS: BAND NEUTROPHILS 4 %; EOSINOPHILS % (MANUAL) 1 %; LYMPHOCYTES % (MANUAL) 9 %; MONOCYTES % (MANUAL) 5 %; NEUTROPHILS % (MANUAL) 81 %
[2023-01-18 22:07] LABS: PLATELET ESTIMATE NORMAL; RBC MORPH NORMAL
[2023-01-18 22:08] LABS: CHLORIDE 101 MMOL/L (98-107); POTASSIUM 4.1 MMOL/L (3.6-5.0); SODIUM 136 MMOL/L (135-145)
[2023-01-18 22:09] LABS: CALCIUM 9.9 MG/DL (8.5-10.1); CARBON DIOXIDE 27 MMOL/L (21-32); GLUCOSE 99 MG/DL (70-105)
[2023-01-18 22:12] LABS: ALANINE AMINOTRANSFERASE 49 U/L (0-55); ALBUMIN 4.6 GM/DL (3.2-4.5); ALKALINE PHOSPHATASE 90 U/L (40-136); BILIRUBIN,TOTAL 0.7 MG/DL (0.1-1.0); BUN/CREATININE RATIO 20; CREATININE SERUM 0.89 MG/DL (0.60-1.30); GFR ESTIMATED 115; LIPASE 20 U/L (8-78); TOTAL PROTEIN 7.7 GM/DL (6.4-8.2)
[2023-01-18] MEDS ORDERED: DICY10CA12 PO (22:23)
[2023-01-18 22:29] LABS: BILIRUBIN,URINE NEGATIVE (NEGATIVE); COLOR,URINE YELLOW; GLUCOSE, URINE (UA) NEGATIVE (NEGATIVE); KETONES,URINE NEGATIVE (NEGATIVE); LEUKOCYTE ESTERASE ,URINE NEGATIVE (NEGATIVE); NITRITE,URINE NEGATIVE (NEGATIVE); PH,URINE 8.5 (5-9); PROTEIN,URINE NEGATIVE (NEGATIVE)
[2023-01-18] MEDS ORDERED: RX-DICYCLOMINE 10 MG (BENTYL) CAP PPK#4 PO STA (22:30)
[2023-01-18 22:34] LABS: AMORPHOUS SEDIMENT,UR LARGE AMOR PHOSPHATE /LPF; BACTERIA,URINE NEGATIVE /HPF; CLARITY,URINE CLOUDY; RBC,URINE RARE /HPF
[2023-01-18 22:40] VITALS: BP 179/91
== END 2023-01-18 22:40 | disposition home or self-care (01) ==
LOC: EDUNIT# 21:19 → ER FS 21:20
DX: K52.9 Noninfective gastroenteritis and colitis, unspecified (principal); E86.0 Dehydration; D72.829 Elevated white blood cell count, unspecified; Z28.311 Partially vaccinated for COVID-19
CPT/HCPCS: 36415; 80053; 81000; 83690; 85007; 85027

== ENCOUNTER 2023-05-12 18:39 | Emergency (ER) | payer OTHER ==
[~2023-05-12 18:39] MED LIST changes: +DICY10CA12 PO
[2023-05-12] MEDS ORDERED: CEPH500T PO (18:59)
--- NOTE | 2023-05-12 19:00 | ED Integumentary General ---
General Chief Complaint: Skin/Wound Problems Stated Complaint: GENITAL SORE Source: patient Exam Limitations: no limitations History of Present Illness Date Seen by Provider: May 12, 2023 Time Seen by Provider: 18:49 Initial Comments 32-year-old male presents emergency room today for sore on his scrotum. Symptoms started a week ago and the redness is spreading. No drainage. He thought there might be some fluid so he tried to poke it with a needle and could not get anything out. He denies any fevers chills nausea or vomiting. No dysuria or hematuria. No new sexual partners. No penile symptoms. All other systems reviewed and negative except documented per HPI. Voice recognition software was used to help create this chart Allergies and Home Medications Allergies Coded Allergies: No Known Drug Allergies (Unverified , 12/04/19) Patient Home Medication List Home Medication List Reviewed: Yes Benzonatate (Tessalon Perles) 100 Mg Capsule, 200 MG PO TID PRN for cough Prescribed by: MALCOLM MOJICA on 01/16/21 2315 Dicyclomine HCl (Dicyclomine HCl) 10 Mg Capsule, 10 MG PO Q6H PRN for abdominal pain/nausea Prescribed by: DAYA MARLOW on 01/18/23 2223 Phenylephrine HCl/Acetaminophn (Sudafed PE Sinus Pressure Tab) 1 Each Tablet, 1 EACH PO BID PRN for CONGESTION Prescribed by: MALCOLM MOJICA on 01/16/215 Review of Systems Review of Systems Constitutional: see HPI Past Jsrghpb-Crmera-Ipetms Hx Patient Social History Tobacco Use?: No Use of E-Cig and/or Vaping dev: No Alcohol Use?: No Pt feels they are or have been: No Immunizations Up To Date First/Initial COVID19 Vaccinat: DECEMBER 2020 Seasonal Allergies Seasonal Allergies: Yes Past Medical History Surgery/Hospitalization HX: HTN, Appendectomy Surgeries: Yes Appendectomy Respiratory: No Cardiac: No Neurological: No Genitourinary: No Gastrointestinal: No Musculoskeletal: No Endocrine: No HEENT: No Cancer: No Psychosocial: No Integumentary: No Blood Disorders: No Physical Exam Vital Signs Capillary Refill : General Appearance: WD/WN, no apparent distress Skin: warm/dry, other (There is an indurated area of cellulitis in the right medial scrotum. Induration but no fluctuance. Surrounding cellulitis about 2 cm. There is a central scab) Departure Communication (Admissions) Patient has what appears to be scrotal cellulitis. We will trial outpatient antibiotics. Given strict return precautions and discharged in stable condition. Impression Primary Impression: Cellulitis Qualified Codes: L03.818 - Cellulitis of other sites Disposition: HOME, SELF-CARE Condition: Stable Departure-Patient Inst. Referrals: EPHRAIM PIERRE MD (PCP) Primary Care Physician Patient Instructions: Cellulitis (Skin Infection), Adult (DC) Add. Discharge Instructions: Take the antibiotics as prescribed until they are gone. The redness should get better within about 48 hours however the firm area will likely take longer to go away and will be more gradual process. Follow-up with your primary doctor should your symptoms persist. Return to the emergency department for any severe concerns. All discharge instructions reviewed with patient and/or family. Voiced understanding. Scripts Cephalexin (Cephalexin) 500 Mg Tablet 500 MG PO BID for 7 Days, #14 TAB Prov: MEHDI NUNO DO 05/12/23 MEHDI NUNO DO May 12, 2023 18:59
[2023-05-12 19:02] VITALS: BP 164/89
== END 2023-05-12 19:02 | disposition home or self-care (01) ==
LOC: EDUNIT# 18:39 → ER FS 18:41
DX: N49.2 Inflammatory disorders of scrotum (principal); Z28.310 Unvaccinated for COVID-19
CPT/HCPCS: 99281

== ENCOUNTER 2023-08-08 00:30 | Emergency (ER) | payer SELFPAY ==
[~2023-08-08] VITALS: Ht 180.3 cm; Wt 93.0 kg
[~2023-08-08 00:30] MED LIST changes: +CEPH500T PO; +DICY-11 PO; -DICY10CA12 PO
--- NOTE | 2023-08-08 00:58 | ED Abdominal Pain ---
General Chief Complaint: Abdominal/GI Problems Stated Complaint: ABD PX FOR 30 MINS Source of Information: Patient History of Present Illness Date Seen by Provider: Aug 08, 2023 Time Seen by Provider: 00:44 Initial Comments PT ARRIVES VIA POV FROM HOME WITH FEMALE C/O GENERALIZED ABDOMINAL PAIN AND NAUSEA/VOMITING--BEGAN 30 MINUTES PRIOR TO ARRIVAL HAS VOMITED X 4 HAD NORMAL BM EARLIER TODAY NO FEVER NO URINARY SYMPTOMS AND VOIDING A NORMAL AMOUNT PT ATE CHIPS AND SALSA ABOUT AN HOUR AGO HE HAD FRITO CHILI PIE AROUND 1600 NO ONE ATE SAME FOODS HIM TODAY, NO KNOWN SICK CONTACTS PT HAS HAD PRIOR APPENDECTOMY NO HISTORY OF GI PROBLEMS PT HAS HTN PT DENIES SMOKING, ALCOHOL OR DRUG USE PCP: DR. PIERRE [facility] / [facility]ARC[facility]--PT RECENTLY MOVED TO [place] Allergies and Home Medications Allergies Coded Allergies: No Known Drug Allergies (Unverified , 12/04/19) Patient Home Medication List Home Medication List Reviewed: Yes Benzonatate (Tessalon Perles) 100 Mg Capsule, 200 MG PO TID PRN for cough Prescribed by: MALCOLM MOJICA on 01/16/212314 Cephalexin (Cephalexin) 500 Mg Tablet, 500 MG PO BID Prescribed by: MEHDI NUNO MD on 05/12/23 185 Dicyclomine HCl (Dicyclomine HCl) 10 Mg Capsule, 10 MG PO Q6H PRN for abdominal pain/nausea Prescribed by: DAYA MARLOW on 01/18/232222 Dicyclomine HCl (Dicyclomine HCl) 20 Mg Tablet, 20 MG PO Q6H Prescribed by: JAIME CAMACHO on 08/08/23 0336 Ondansetron (Ondansetron Odt) 8 Mg Tab.rapdis, 8 MG PO Q4H PRN for NAUSEA/VOMITING Prescribed by: JAIME CAMACHO on 08/08/23 033 Phenylephrine HCl/Acetaminophn (Sudafed PE Sinus Pressure Tab) 1 Each Tablet, 1 EACH PO BID PRN for CONGESTION Prescribed by: MALCOLM MOJICA on 01/16/212314 Review of Systems Review of Systems Constitutional: no symptoms reported EENTM: No Symptoms Reported Respiratory: No Symptoms Reported Cardiovascular: No Symptoms Reported Gastrointestinal: See HPI, Abdominal Pain; Denies Constipated, Denies Diarrhea; Nausea, Vomiting Genitourinary: No Symptoms Reported Musculoskeletal: no symptoms reported Skin: no symptoms reported Psychiatric/Neurological: No Symptoms Reported Endocrine: No Symptoms Reported Hematologic/Lymphatic: No Symptoms Reported Past Glqhrjb-Ohlulc-Cmkqtr Hx Patient Social History Tobacco Use?: No Substance use?: No Alcohol Frequency: Rarely Immunizations Up To Date Influenza Vaccine Up-to-Date: No; Not Current First/Initial COVID19 Vaccinat: DECEMBER 2020 Second COVID19 Vaccination Kris: DECEMBER 2020 Third COVID19 Vaccination Date: DECEMBER 2020 Seasonal Allergies Seasonal Allergies: Yes Past Medical History Surgery/Hospitalization HX: HTN, Appendectomy Surgeries: Yes Appendectomy Respiratory: No Cardiac: Yes Hypertension Neurological: No Genitourinary: No Gastrointestinal: Yes (APPENDECTOMY) Musculoskeletal: No Endocrine: No HEENT: No Cancer: No Psychosocial: No Integumentary: No Blood Disorders: No Physical Exam Vital Signs Vital Signs - First Documented 08/08/23 00:47 Temp 37.0 Pulse 88 Resp 16 B/P (MAP) 137/96 (110) Pulse Ox 97 O2 Delivery Room Air Capillary Refill : Height/Weight/BMI Height: '" Weight: lbs. oz. 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, no motor/sensory deficits, alert, normal mood/affect, oriented x 3 Skin: normal color, warm/dry; No rash Progress/Results/Core Measures Results/Orders Lab Results Laboratory Tests Test 08/08/23 00:48 08/08/23 01:17 Range/Units White Blood Count 15.9 H 4.3-11.0 10^3/uL Red Blood Count 5.48 4.30-5.52 10^6/uL Hemoglobin 16.4 13.3-17.7 g/dL Hematocrit 48 40-54 % Mean Corpuscular Volume 87 80-99 fL Mean Corpuscular Hemoglobin 30 25-34 pg Mean Corpuscular Hemoglobin Concent 35 32-36 g/dL Red Cell Distribution Width 12.8 10.0-14.5 % Platelet Count 274 130-400 10^3/uL Mean Platelet Volume 9.7 9.0-12.2 fL Immature Granulocyte % (Auto) 0 % Neutrophils (%) (Auto) 60 42-75 % Lymphocytes (%) (Auto) 28 12-44 % Monocytes (%) (Auto) 8 0-12 % Eosinophils (%) (Auto) 3 0-10 % Basophils (%) (Auto) 0 0-10 % Neutrophils # (Auto) 9.6 H 1.8-7.8 10^3/uL Lymphocytes # (Auto) 4.5 H 1.0-4.0 10^3/uL Monocytes # (Auto) 1.2 H 0.0-1.0 10^3/uL Eosinophils # (Auto) 0.5 H 0.0-0.3 10^3/uL Basophils # (Auto) 0.0 0.0-0.1 10^3/uL Immature Granulocyte # (Auto) 0.1 0.0-0.1 10^3/uL Neutrophils % (Manual) 55 % Lymphocytes % (Manual) 34 % Monocytes % (Manual) 5 % Eosinophils % (Manual) 6 % Sodium Level 139 135-145 MMOL/L Potassium Level 3.7 3.6-5.0 MMOL/L Chloride Level 102 98-107 MMOL/L Carbon Dioxide Level 24 21-32 MMOL/L Anion Gap 13 5-14 MMOL/L Blood Urea Nitrogen 16 7-18 MG/DL Creatinine 0.89 0.60-1.30 MG/DL Estimat Glomerular Filtration Rate 115 BUN/Creatinine Ratio 18 Glucose Level 134 H 70-105 MG/DL Calcium Level 9.9 8.5-10.1 MG/DL Corrected Calcium 8.5-10.1 MG/DL Total Bilirubin 0.7 0.1-1.0 MG/DL Aspartate Amino Transf (AST/SGOT) 29 5-34 U/L Alanine Aminotransferase (ALT/SGPT) 47 0-55 U/L Alkaline Phosphatase 90 40-136 U/L Total Protein 8.5 H 6.4-8.2 GM/DL Albumin 4.8 H 3.2-4.5 GM/DL Amylase Level 32 25-125 U/L Lipase 11 8-78 U/L Serum Alcohol < 10 <10 MG/DL Urine Color YELLOW Urine Clarity CLEAR Urine pH 6.5 5-9 Urine Specific [place] 1.025 H 1.016-1.022 Urine Protein 1+ H NEGATIVE Urine Glucose (UA) NEGATIVE NEGATIVE Urine Ketones NEGATIVE NEGATIVE Urine Nitrite NEGATIVE NEGATIVE Urine Bilirubin NEGATIVE NEGATIVE Urine Urobilinogen 1.0 < = 1.0 MG/DL Urine Leukocyte Esterase NEGATIVE NEGATIVE Urine RBC (Auto) TRACE H NEGATIVE Urine RBC 0-2 /HPF Urine WBC NONE /HPF Urine Crystals PRESENT H /LPF Urine Amorphous Sediment MOD RONI PHOSPHATE H /LPF Urine Bacteria NEGATIVE /HPF Urine Casts NONE /LPF Urine Mucus LARGE H /LPF Urine Culture Indicated NO Urine Opiates Screen NEGATIVE NEGATIVE Urine Oxycodone Screen NEGATIVE NEGATIVE Urine Methadone Screen NEGATIVE NEGATIVE Urine Propoxyphene Screen NEGATIVE NEGATIVE Urine Barbiturates Screen NEGATIVE NEGATIVE Ur Tricyclic Antidepressants Screen NEGATIVE NEGATIVE Urine Phencyclidine Screen NEGATIVE NEGATIVE Urine Amphetamines Screen NEGATIVE NEGATIVE Urine Methamphetamines Screen NEGATIVE NEGATIVE Urine Benzodiazepines Screen NEGATIVE NEGATIVE Urine Cocaine Screen NEGATIVE NEGATIVE Urine Cannabinoids Screen NEGATIVE NEGATIVE My Orders Orders - JAIME CAMACHO DO Ed Iv/Invasive Line Start (08/08/23 00:53) Monitor-Rhythm Ecg Trace Only (08/08/23 00:53) Alcohol (08/08/23 00:53) Amylase (08/08/23 00:53) Cbc And Automated Diff (08/08/23 00:53) Comprehensive Metabolic Panel (08/08/23 00:53) Drug Screen Stat (Urine) (08/08/23 00:53) Lipase (08/08/23 00:53) Ua Culture If Indicated (08/08/23 00:53) Ed Iv/Invasive Line Start (08/08/23 00:53) Lactated Ringers 1,000 Ml (Lactated Ring (08/08/23 01:00) Ondansetron Injection (Ondansetron Inj (08/08/23 01:00) Pantoprazole Injection (Pantoprazole Inj (08/08/23 01:00) Ct Abdomen/Pelvis W (08/08/23 00:53) Ed Iv/Invasive Line Start (08/08/23 00:58) Ns Iv 1000 Ml (Ns Iv 1000 Ml) (08/08/23 01:00) Manual Differential (08/08/23 00:48) Iohexol Injection (Omnipaque 350 Mg/Ml 1 (08/08/23 01:30) Received Contrast (Hold Metformin- Contr (08/08/23 01:30) Sodium Chloride Flush (Catheter Flush Sy (08/08/23 01:30) Ns (Ivpb) 100 Ml (Sodium Chloride 0.9% 1 (08/08/23 01:30) Ed Iv/Invasive Line Start (08/08/23 03:04) Lactated Ringers 1,000 Ml (Lactated Ring (08/08/23 03:15) Ondansetron Injection (Ondansetron Inj (08/08/23 03:15) Ketorolac Injection (Ketorolac Injection (08/08/23 03:04) Rx-Dicyclomine Capsule (Rx-Bentyl Capsul (08/08/23 03:36) Rx-Ondansetron Po (Rx-Zofran Po) (08/08/23 03:36) Medications Given in ED Current Medications Medications Dose Ordered Sig/Brice Route Start Time Stop Time Status Last Admin Dose Admin Iohexol 100 ml ONCE ONCE IV 08/08/23 01:30 08/08/23 01:31 DC 08/08/23 01:32 80 ML Lactated Ringer's 1,000 ml @ 0 mls/hr Q0M ONCE IV 08/08/23 03:15 08/08/23 03:16 DC 08/08/23 03:09 0 MLS/HR Ondansetron HCl 4 mg ONCE ONCE IVP 08/08/23 01:00 08/08/23 01:01 DC 08/08/23 00:59 4 MG Ondansetron HCl 4 mg ONCE ONCE IVP 08/08/23 03:15 08/08/23 03:16 DC 08/08/23 03:10 4 MG Pantoprazole 40 mg ONCE ONCE IV 08/08/23 01:00 08/08/23 01:01 DC 08/08/23 00:59 40 MG Sodium Chloride 10 ml NEEDED PRN IV 08/08/23 01:30 08/08/23 03:47 DC 08/08/23 01:32 10 ML Sodium Chloride 100 ml ONCE ONCE IV 08/08/23 01:30 08/08/23 01:31 DC 08/08/23 01:32 80 ML Vital Signs/I&O 08/08/23 08/08/23 00:47 03:45 Temp 37.0 37.0 Pulse 88 80 Resp 16 16 B/P (MAP) 137/96 (110) 130/95 Pulse Ox 97 98 O2 Delivery Room Air Room Air Progress Progress Note : Progress Note VITALS ON ARRIVAL: TEMP 37.0, HR 88, RR 16, BP 137/96, O2 SAT 98% ON ROOM AIR GIVEN: -IV FLUIDS -ZOFRAN -PROTONIX -TORADOL LABS: -CBC WITH WBC 15.9, OTHERWISE NORMAL -CMP NORMAL -AMYLASE/LIPASE NORMAL -UA CLEAR -UDS NEGATIVE -ETOH NEGATIVE CT SCAN UNREMARKABLE SYMPTOMS RELIEVED AT DISMISSAL NO VOMITING FOR REMAINDER OF ER STAY AND IS PAIN-FREE AT DISMISSAL VITALS STABLE DISCUSSED TEST RESULTS, ANTICIPATED COURSE, SYMPTOMATIC TREATMENT, MEDICATIONS, DIET, NEED FOR FOLLOW UP AND RETURN PRECAUTIONS WORK NOTE GIVEN--PT WORKS AT [employer] Comments CT ABDOMEN/PELVIS--NO ACUTE PROCESS, PER [employer] VIA FAX AT [id number] Reviewed: Reviewed by Me Departure Impression Primary Impression: Gastroenteritis Disposition: HOME, SELF-CARE Condition: Improved Departure-Patient Inst. Decision time for Depature: 03:34 Referrals: EPHRAIM PIERRE MD (PCP/Family) Primary Care Physician Patient Instructions: [id number] Add. Discharge Instructions: CLEAR LIQUIDS, SIPS AT A TIME--WATER, BROTH, JELLO, GATORADE TOMORROW IF YOU ARE BETTER, ADD BRATS DIET TO CLEAR LIQUIDS--BANANAS, RICE, APPLESAUCE, TOAST, SALTINES FOLLOW UP WITH [facility] IN 2-3 DAYS IF NO BETTER, RETURN TO ER IF SYMPTOMS WORSEN All discharge instructions reviewed with patient and/or family. Voiced understanding. Scripts Dicyclomine HCl (Dicyclomine HCl) 20 Mg Tablet 20 MG PO Q6H for Abdominal Pain, #20 TAB Prov: JAIME CAMACHO DO 08/08/23 Ondansetron (Ondansetron Odt) 8 Mg Tab.rapdis 8 MG PO Q4H PRN for NAUSEA/VOMITING, #10 TAB Prov: JAIME CAMACHO DO 08/08/23 Work/School Note: Work Release Form Date Seen in the Emergency Department: Aug 08, 2023 Return to Work: Aug 10, 2023 JAIME CAMACHO DO Aug 08, 2023 00:58
[2023-08-08 01:00] LABS: BASOPHILS % (AUTO) 0 % (0-10); EOSINOPHILS # (AUTO) 0.5 10^3/uL (0.0-0.3); EOSINOPHILS % (AUTO) 3 % (0-10); HEMATOCRIT 48 % (40-54); HEMOGLOBIN 16.4 g/dL (13.3-17.7); LYMPHOCYTES # (AUTO) 4.5 10^3/uL (1.0-4.0); LYMPHOCYTES % (AUTO) 28 % (12-44); MEAN CORPUSCULAR HEMOGLOBIN 30 pg (25-34); MEAN CORPUSCULAR HGB CONC 35 g/dL (32-36); MEAN CORPUSCULAR VOLUME 87 fL (80-99); MEAN PLATELET VOLUME 9.7 fL (9.0-12.2); MONOCYTES # (AUTO) 1.2 10^3/uL (0.0-1.0); MONOCYTES % (AUTO) 8 % (0-12); NEUTROPHILS # (AUTO) 9.6 10^3/uL (1.8-7.8); NEUTROPHILS % (AUTO) 60 % (42-75); PLATELET COUNT 274 10^3/uL (130-400); WHITE BLOOD COUNT 15.9 10^3/uL (4.3-11.0)
[2023-08-08] MEDS ORDERED: PANTOPRAZOLE INJECTION 40 MG VIAL IV ONE (01:00)
[2023-08-08] MEDS ORDERED: NS IV 1000 ML 1,000 ML IV SCH (01:00)
[2023-08-08] MEDS ORDERED: ONDANSETRON INJECTION 4 MG/2 ML (SDV) IVP ONE ×2 (01:00→03:15)
[2023-08-08] MEDS ORDERED: LACTATED RINGERS 1,000 ML 1,000 ML IV ONE ×2 (01:00→03:15)
[2023-08-08 01:08] LABS: ALBUMIN 4.8 GM/DL (3.2-4.5); CHLORIDE 102 MMOL/L (98-107); POTASSIUM 3.7 MMOL/L (3.6-5.0); SODIUM 139 MMOL/L (135-145)
[2023-08-08 01:09] LABS: AMYLASE 32 U/L (25-125); CALCIUM 9.9 MG/DL (8.5-10.1)
[2023-08-08 01:11] LABS: GLUCOSE 134 MG/DL (70-105); TOTAL PROTEIN 8.5 GM/DL (6.4-8.2)
[2023-08-08 01:12] LABS: BILIRUBIN,TOTAL 0.7 MG/DL (0.1-1.0); CARBON DIOXIDE 24 MMOL/L (21-32)
[2023-08-08 01:14] LABS: ALKALINE PHOSPHATASE 90 U/L (40-136); CREATININE SERUM 0.89 MG/DL (0.60-1.30); GFR ESTIMATED 115
[2023-08-08 01:15] LABS: BUN/CREATININE RATIO 18
[2023-08-08 01:17] LABS: ALANINE AMINOTRANSFERASE 47 U/L (0-55)
[2023-08-08 01:18] LABS: LIPASE 11 U/L (8-78)
[2023-08-08] MEDS ORDERED: NS 100 ML (IVPB) BAG IV ONE (01:30)
[2023-08-08] MEDS ORDERED: CATHETER FLUSH 10 ML SYR IV PRN (01:30)
[2023-08-08] MEDS ORDERED: IOHEXOL 350 MG/ML 100 ML (OMNIPAQUE 350) VIAL IV ONE (01:30)
[2023-08-08] MEDS ORDERED: HOLD METFORMIN - RECEIVED CONTRAST 20 ML VIAL IV SCH (01:30)
[2023-08-08 01:42] LABS: CLARITY,URINE CLEAR; COLOR,URINE YELLOW; GLUCOSE, URINE (UA) NEGATIVE (NEGATIVE); PH,URINE 6.5 (5-9); PROTEIN,URINE 1+ (NEGATIVE)
[2023-08-08 01:43] LABS: AMORPHOUS SEDIMENT,UR MOD AMOR PHOSPHATE /LPF; BACTERIA,URINE NEGATIVE /HPF; BILIRUBIN,URINE NEGATIVE (NEGATIVE); KETONES,URINE NEGATIVE (NEGATIVE); LEUKOCYTE ESTERASE ,URINE NEGATIVE (NEGATIVE); NITRITE,URINE NEGATIVE (NEGATIVE); RBC,URINE 0-2 /HPF
[2023-08-08 01:45] LABS: EOSINOPHILS % (MANUAL) 6 %; LYMPHOCYTES % (MANUAL) 34 %; MONOCYTES % (MANUAL) 5 %; NEUTROPHILS % (MANUAL) 55 %
[2023-08-08 01:48] LABS: AMPHETAMINE SCREEN, URINE NEGATIVE (NEGATIVE); BARBITURATE SCREEN URINE NEGATIVE (NEGATIVE); CANNABINOID SCREEN, URINE NEGATIVE (NEGATIVE); COCAINE SCREEN URINE NEGATIVE (NEGATIVE); METHADONE STAT NEGATIVE (NEGATIVE); OPIATE SCREEN URINE NEGATIVE (NEGATIVE); OXYCODONE STAT NEGATIVE (NEGATIVE); PROPOXYPHENE STAT NEGATIVE (NEGATIVE); TRICYCLIC ANTIDEPRESSANTS SCRE NEGATIVE (NEGATIVE)
[2023-08-08] MEDS ORDERED: KETOROLAC INJ 30 MG/ML VIAL IVP STA (03:04)
[2023-08-08] MEDS ORDERED: RX-DICYCLOMINE 10 MG (BENTYL) CAP PPK#4 PO STA (03:36)
[2023-08-08] MEDS ORDERED: DICY20TA PO (03:36)
[2023-08-08] MEDS ORDERED: RX-ONDANSETRON 4 MG ODT (ZOFRAN) PPK #4 PO STA (03:36)
[2023-08-08] MEDS ORDERED: ONDA8TAB13 PO (03:36)
[2023-08-08 03:45] VITALS: BP 130/95
--- NOTE | 2023-08-08 06:47 | Diagnostic Imaging Report ---
PROCEDURE: CT abdomen and pelvis with contrast. TECHNIQUE: Multiple contiguous axial images were obtained through the abdomen and pelvis after administration of intravenous contrast. Auto Exposure Controls were utilized during the CT exam to meet ALARA standards for radiation dose reduction. All CT scans use one or more of the following dose optimizing techniques: automated exposure control, MA and/or KvP adjustment based on patient size and exam type or iterative reconstruction. INDICATION: Abdominal pain with nausea and vomiting. FINDINGS: The heart size is normal. The lung bases are clear. The liver is normal in size without focal lesions. Gallbladder is unremarkable. No biliary duct dilatation. The distal esophagus and stomach are normal. The spleen is normal. The pancreas and adrenal glands are unremarkable. There is a small cyst in the right lobe of the liver. Aorta is nonaneurysmal. There are some mildly dilated loops of small bowel in the left upper quadrant where there is also some mucosal thickening. There is no free air. There is no ascites. There are no focal inflammatory changes. There is no CT evidence of appendicitis. The bladder is decompressed. There is no pelvic mass, adenopathy or free fluid. The osseous structures are unremarkable. IMPRESSION: There are some mildly dilated loops of small bowel in the left upper quadrant with questionable mucosal thickening. This is nonspecific however the possibility of an enteritis cannot be excluded. No other acute abnormality in the abdomen or pelvis. Dictated by: Dictated on workstation # [id number]
== END 2023-08-08 03:47 | disposition home or self-care (01) ==
LOC: EDUNIT# 00:30 → ER 00:35
DX: K52.9 Noninfective gastroenteritis and colitis, unspecified (principal); Z90.49 Acquired absence of other specified parts of digestive tract
CPT/HCPCS: 74177; 80053; 80306; 81000; 82150; 83690; 85007; 85027; 93041; 99284; G0480; 36415; 80320; 96361; 96374; 96375; 96376